=== PATIENT | female | born 1980 | race Hispanic/Latino ===

== ENCOUNTER 2018-05-23 09:56 | Emergency (ER) | payer OTHER ==
[2018-05-23 10:03] VITALS: BMI 29.6
--- NOTE | 2018-05-23 10:42 | ED PDOC ---
NIHSS Stroke Scale - Date/Time Evaluation Performed Date Performed: 05/23/18 Time Performed: 10:30 When Was NIHSS Performed: Code Stroke - How Severe is the Stroke Level of Consciousness: 0=Alert LOC to Questions: 0=Both comments correct LOC to commands: 0=Obeys both correctly Best Gaze: 0=Normal Visual: 0=No visual loss Facial: 0=Normal Motor Arm - Left: 0=No drift Motor Arm - Right: 0=No drift Motor Leg - Left: 0=No drift Motor Leg - Right: 0=No drift Limb Ataxia: 0=Absent Sensory: 1=Mild to moderate loss Best Language: 0=No aphasia Dysarthia: 0=Normal articulation Extinction & Inattention (Neglect): 0=Normal, no object Score: 1 Past Medical History Vital Signs: Last Vital Signs Temp 98.6 F 05/23/18 10:03 Pulse 77 05/23/18 10:31 Resp 16 05/23/18 10:31 BP 120/67 05/23/18 10:31 Pulse Ox 99 05/23/18 10:31 - Home Medications Home Medications: Ambulatory Orders Medication Instructions Recorded No Known Home Med 05/23/18 - Allergies Allergies/Adverse Reactions: Allergies Allergy/AdvReac Type Severity Reaction Status Date / Time No Known Allergies Allergy Verified 05/23/18 10:11 - ECG O2 Sat by Pulse Oximetry: 99 Disposition - Disposition
--- NOTE | 2018-05-23 10:44 | ED PDOC ---
HPI:STROKE - Time Time: 10:33 - Historian Historian: Patient - Chief Complaint Chief Complaint: Weakness (LEFT ARM), Numbness (LEFT FACE), Arm weakness (left) - Onset Date: 05/23/18 Time: 09:15 Onset: This morning (x1.5 hours ago) - Timing Timing: Persistent - Context Context: Walking, Exercising - Location Location: None Locate right:: Face Locate left: Upper extremity - Radiation Radiation: None - Associated Symptoms Associated symptoms:: Nausea, Vomiting, other (Vertigo and Arm Weakness) - Notes: Notes:: 37 y/o female with no significant PMHx presents to the ED for evaluation of dizziness, onset earlier this morning. Patient states she was walking her dog earlier this morning when she began to feel dizzy. Patient reports when she was working out, she began to feel dizzy again and laid down on the ground because she felt like she was going to "pass out". At approximately 9:15 this morning, patient reports of numbness to the left face and weakness to the left arm. Patient additionally reports of similar symptoms in the past but states she was told it was due to low blood pressure. Patient states dizziness is associated with nausea and 2 episodes of vomiting. Denies headache, fever, head trauma, abdominal pain, facial droop and slurred speech. PMD: Non [facility] Provider NIHSS Stroke Scale - Date/Time Evaluation Performed Date Performed: 05/23/18 Time Performed: 10:30 - How Severe is the Stroke Level of Consciousness: 0=Alert LOC to Questions: 0=Both comments correct LOC to commands: 0=Obeys both correctly Best Gaze: 0=Normal Visual: 0=No visual loss Facial: 0=Normal Motor Arm - Left: 0=No drift Motor Arm - Right: 0=No drift Motor Leg - Left: 0=No drift Motor Leg - Right: 0=No drift Limb Ataxia: 0=Absent Sensory: 1=Mild to moderate loss Best Language: 0=No aphasia Dysarthia: 0=Normal articulation Extinction & Inattention (Neglect): 0=Normal, no object Score: 1 rTPA Inclusion/Exclusion - Refusal of Treatment Patient Refused Treatment: No - Inclusion Criteria for Altepase Patient is 18 years or Older: Yes The Clinical Diagnosis of Ischemic Stroke That is Causing a Potentially Disabling Neurological Deficit: No Time of Onset is Well Established to be Less Than 270 Minute Before Treatment Would Begin: Yes Risk/Benefit Discussed With Patient/Family Member Present: No - Warning to TPA With Conditions Following Conditions Weighed Against Anticipated Benefit: Yes Condition: Rapid Improvement Past Medical History Reviewed: Historical Data, Nursing Documentation, Vital Signs Vital Signs: Last Vital Signs Temp 98.6 F 05/23/18 10:03 Pulse 77 05/23/18 10:31 Resp 16 05/23/18 10:31 BP 120/67 05/23/18 10:31 Pulse Ox 99 05/23/18 10:42 - Medical History PMH: No Chronic Diseases - Surgical History Surgical History: No Surg Hx - Family History Family History: States: Unknown Family Hx - Social History Current smoker - smoking cessation education provided: No Alcohol: Social Drugs: Denies - Home Medications Home Medications: Ambulatory Orders Medication Instructions Recorded Meclizine [Meclizine*] 25 mg PO Q6 PRN #20 tab 05/23/18 - Allergies Allergies/Adverse Reactions: Allergies Allergy/AdvReac Type Severity Reaction Status Date / Time No Known Allergies Allergy Verified 05/23/18 10:11 Review of Systems ROS Statement: Except As Marked, All Systems Reviewed And Found Negative Constitutional: Negative for: Fever Gastrointestinal: Negative for: Abdominal Pain Neurological: Positive for: Weakness (left arm), Numbness (left sided facial ). Negative for: Change in Speech, Headache Physical Exam - Reviewed Nursing Documentation Reviewed: Yes Vital Signs Reviewed: Yes - Physical Exam Appears: Positive for: No Acute Distress Head Exam: Positive for: ATRAUMATIC, NORMAL INSPECTION, NORMOCEPHALIC Skin: Positive for: Normal Color, Warm, Dry Eye Exam: Positive for: EOMI, Normal appearance, PERRL Neck: Positive for: Normal, Painless ROM Cardiovascular/Chest: Positive for: Regular Rate, Rhythm. Negative for: Murmur Respiratory: Positive for: Normal Breath Sounds. Negative for: Respiratory Distress Gastrointestinal/Abdominal: Positive for: Normal Exam, Soft. Negative for: Tenderness Back: Positive for: Normal Inspection. Negative for: L CVA Tenderness, R CVA Tenderness, Vertebral Tenderness Extremity: Positive for: Normal ROM. Negative for: Pedal Edema, Deformity Neurologic/Psych: Positive for: Alert, chemical unit operator II-XII (intact), Oriented (x3), Motor /Sensory Deficits (Decreased sensations to the left side of the face. ), Cerebellar Tests (normal). Negative for: Facial Droop, Other (Pronator distress ) - Laboratory Results Result Diagrams: 05/23/18 10:50 05/23/18 10:50 - ECG O2 Sat by Pulse Oximetry: 99 (RA) Pulse Ox Interpretation: Normal - Core Measure Core Measure Indicators: Code Stroke - Critical Care Total Time (In Min): 45 Medical Decision Making Medical Decision Making: Time: 1026 Plan: -- EKG Time: 1033 Impression: Possible Stroke Plan: -- Code Stroke Call placed. Time: 1037 Plan: -- CT Head w/o Contrast -- Stroke Team Consult -- CXR Portable -- Zofran Inj 4 mg IV -- [employer] Application Developer -- IV Insertoion -- Call Stroke Team Consult -- ED OBTAIN LABS STAT -- Glucose, Blood, POC -- Nursing Swallow Screening -- Vital Signs Q15MIN Time: 1040 -- Case discussed with neurologist, Dr. Soriano who recommended CTA Head/Neck to rule out dissection Time: 1043 Plan: -- CTA Head/Neck Code Stroke Protocol Time: 1047 Plan: -- Type and Screen -- CMP -- Hemoglobin A1C -- Lipid Panel -- Troponin I -- CBC with differentials -- PTT -- Prothrombin Time -- Sodium Chloride IV 100 mls/hr -- HCG, Qualitative Urine Time: 1054 -- Answered call from Radiologist who states CT Head is normal. Time: 1145 CXR RESULTS FINDINGS: LUNGS: Single frontal portable view of the chest was performed. Hypoventilatory changes are noted. No focal infiltrate, CHF, and/or effusion is noted. PLEURA: No significant pleural effusion identified, no pneumothorax apparent. CARDIOVASCULAR: Normal. OSSEOUS STRUCTURES: No significant abnormalities. VISUALIZED UPPER ABDOMEN: Normal. OTHER FINDINGS: None. IMPRESSION: No active disease. Time: 1249 -- Spoke to [facility] Radiologist who states CTA results are negative. CTA RESULTS FINDINGS: VASCULATURE: Right common carotid artery: Unremarkable. No significant stenosis. No dissection or occlusion. Right internal carotid artery: Unremarkable. Extracranial segment is patent with no significant stenosis. No dissection or occlusion. Right external carotid artery: Unremarkable. No occlusion. Right vertebral artery: Unremarkable. No significant stenosis. No dissection or occlusion. Left common carotid artery: Unremarkable. No significant stenosis. No dissection or occlusion. Left internal carotid artery: Unremarkable. Extracranial segment is patent with no significant stenosis. No dissection or occlusion. Left external carotid artery: Unremarkable. No occlusion. Left vertebral artery: Unremarkable. No significant stenosis. No dissection or occlusion. NECK: Bones/joints: No acute fracture. No dislocation. Soft tissues: Bilateral cervical chain lymph nodes. Submental and submandibular lymph nodes. CAROTID STENOSIS REFERENCE USING NASCET CRITERIA: % ICA stenosis = (1 - narrowest ICA diameter/diameter of distal cervical ICA) x 100. Mild - <50% stenosis. Moderate - 50-69% stenosis. Severe - 70-94% stenosis. Near occlusion - 95-99% stenosis. Occluded - 100% stenosis. IMPRESSION: Normal neck CTA. Thank you for allowing us to participate in the care of your patient. Dictated and Authenticated by: Luis Farrell MD 05/23/2018 12:45 PM Eastern Time ([place] & [place]) Time: 1250 -- On re-evaluation, patient reports symptoms have resolved. -- Informed Dr. Soriano, neurologist, on CTA results. Dr. Soriano states if symptoms have resolved to give patient Meclizine PRN and referral to follow up with him in his office within the next two weeks. -- Meclizine 50 mg PO given. Scribe Attestation: Documented by Emile Espinal acting as a scribe for Solange Vilchis MD. Provider Scribe Attestation: All medical record entries made by the Scribe were at my direction and personally dictated by me. I have reviewed the chart and agree that the record accurately reflects my personal performance of the history, physical exam, medical decision making, and the department course for this patient. I have also personally directed, reviewed, and agree with the discharge instructions and disposition. Disposition - Clinical Impression Clinical Impression: Vertigo, Paresthesia - Disposition Referrals: Wilbert Soriano MD [Medical Doctor] - Disposition: Routine/Home Disposition Time: 13:30 Condition: IMPROVED Additional Instructions: FOLLOW-UP WITH DR. SORIANO WITHIN 2 WEEKS FOR REEVALUATION. Prescriptions: Meclizine [Meclizine*] 25 mg PO Q6 PRN #20 tab PRN Reason: Dizziness Instructions: Vertigo (a Type of Dizziness), Paresthesias (DC) Forms: [employer] (Greenlandic)
[2018-05-23] MEDS ORDERED: Sodium Chloride 0.9% 1,000 ML IV SCH (10:45)
[2018-05-23] MEDS ORDERED: Iodixanol 320 MG/ML 100 ML BOTTLE IV ONE (10:56)
[2018-05-23] MEDS ORDERED: Sodium Chloride 0.9% 100 ML ONE (10:57)
--- NOTE | 2018-05-23 10:57 | CT ---
Date of service: 05/23/2018 PROCEDURE: CT HEAD WITHOUT CONTRAST. HISTORY: L facial numbness, LUE weakness COMPARISON: None available. TECHNIQUE: Axial computed tomography images were obtained through the head/brain without intravenous contrast. Radiation dose: Total exam DLP = 768 mGy-cm. This CT exam was performed using one or more of the following dose reduction techniques: Automated exposure control, adjustment of the mA and/or kV according to patient size, and/or use of iterative reconstruction technique. FINDINGS: HEMORRHAGE: No intracranial hemorrhage. BRAIN: No mass effect or edema. No atrophy or chronic microvascular ischemic changes. VENTRICLES: Unremarkable. No hydrocephalus. CALVARIUM: Unremarkable. PARANASAL SINUSES: Unremarkable as visualized. No significant inflammatory changes. MASTOID AIR CELLS: Unremarkable as visualized. No inflammatory changes. OTHER FINDINGS: None. IMPRESSION: Unremarkable CT scan of the brain without contrast. No evidence of intracranial hemorrhage or recent infarct.
[2018-05-23 11:03] LABS: INR 1.1; PROTHROMBIN TIME 11.7 Seconds (9.8-13.1)
[2018-05-23 11:06] LABS: PARTIAL THROMBOPLASTIN TIME 25.2 Seconds (25.6-37.1)
[2018-05-23 11:10] LABS: ALB/GLOB RATIO 1.3 (1.0-2.1); ALBUMIN 4.3 g/dL (3.5-5.0); ALT/SGPT 21 U/L (9-52); AST/SGOT 23 U/L (14-36); BLOOD UREA NITROGEN 20 mg/dl (7-17); CALCIUM 9.5 mg/dL (8.4-10.2); GFR NON-AFRICAN AMERICAN > 60; HDL CHOLESTEROL 55 MG/DL (30-70)
[2018-05-23 11:19] LABS: BASO # 0.1 K/uL (0.0-0.2); BASO % 1.1 % (0.0-2.0); EOS # 0.2 K/uL (0.0-0.7); EOS % 1.5 % (0.0-4.0); LYMPH # 4.1 K/uL (1.0-4.3); LYMPH % 31.4 % (20.0-40.0); MEAN CELL VOLUME 92.2 fl (81.0-99.0); MEAN CORPUSCULAR HEMOGLOBIN 30.3 pg (27.0-31.0); MEAN CORPUSCULAR HGB CONC 32.9 g/dL (33.0-37.0); MEAN PLATELET VOLUME 8.1 fl (7.2-11.7); MONO # 0.9 K/uL (0.0-0.8); MONO % 6.8 % (0.0-10.0); NEUT # 7.6 K/uL (1.8-7.0); NEUT % 59.2 % (50.0-75.0); NRBC % 0.4 % (0.0-0.0); RBC 4.6 Mil/uL (3.80-5.20); RED CELL DISTRIBUTION WIDTH 13.1 % (11.5-14.5); WHITE BLOOD COUNT 12.9 K/uL (4.8-10.8)
[2018-05-23 11:20] LABS: LDL CHOLESTEROL 98 mg/dL (0-129)
--- NOTE | 2018-05-23 11:47 | RAD ---
Date of service: 05/23/2018 HISTORY: Code Stroke COMPARISON: No prior. FINDINGS: LUNGS: Single frontal portable view of the chest was performed. Hypoventilatory changes are noted. No focal infiltrate, CHF, and/or effusion is noted. PLEURA: No significant pleural effusion identified, no pneumothorax apparent. CARDIOVASCULAR: Normal. OSSEOUS STRUCTURES: No significant abnormalities. VISUALIZED UPPER ABDOMEN: Normal. OTHER FINDINGS: None. IMPRESSION: No active disease.
--- NOTE | 2018-05-23 14:51 | CT ---
Date of service: 05/23/2018 PROCEDURE: CT Angiography of the head and neck with contrast HISTORY: L facial numbness, LUE weakness COMPARISON: Noncontrast CT scan same day TECHNIQUE: Contiguous axial images of the head and neck were obtained from the level of the top of the skull to the superior mediastinum in the arteriographic phase of enhancement. Coronal and sagittal reformats or also generated. 3D MIP images were also performed. IV contrast dose: 100 milliliters Radiation Dose - DLP: 371 mGy-cm This CT exam was performed using one or more of the following dose reduction techniques: Automated exposure control, adjustment of the mA and/or kV according to patient size, and/or use of iterative reconstruction technique. FINDINGS: RIGHT CAROTID ARTERIES: Common Carotid Artery: Normal. Carotid Bifurcation: Normal. Internal Carotid Artery:Normal. External Carotid Artery (proximal branches): Normal. LEFT CAROTID ARTERIES: Common Carotid Artery: Normal. Carotid Bifurcation: Normal. Internal Carotid Artery:Normal. External Carotid Artery (proximal branches): Normal. VERTEBRAL ARTERIES: Right Vertebral Artery: Normal. Left Vertebral Artery: Normal. There is less than 5 percent luminal narrowing by NASCET criteria. OTHER FINDINGS: CT angiography of the brain reveals no evidence of stenosis of the intracranial vertebral artery Center basilar artery. Intracranial internal carotid arteries, carotid bifurcation, and middle cerebral arteries are widely patent. Anterior cerebral arteries are also patent. No abnormal extrinsic compression upon the [place] vessels is seen. No aneurysm is seen. No appreciable vascular anomaly is noted. No abnormal enhancement is seen on the post-contrast images in the region of the brain. Retro-orbital regions are unremarkable. Visualized skull and sinuses are unremarkable. IMPRESSION: Unremarkable CTA of the head and neck with contrast. No appreciable stenosis or thrombus in the brain or neck vessel region. This agrees with preliminary report.
[2018-05-23 15:10] VITALS: BP 128/77; PULSE 63; RESP 18; TEMP 98
--- NOTE | 2018-05-24 08:07 | CARD ---
APPROVED REPORT Date of service: 05/23/2018 <Conclusion> Normal sinus rhythm Low voltage QRS Borderline ECG
[2018-05-24 11:34] VITALS: O2SAT 99
== END 2018-05-23 14:45 | disposition home or self-care (01) ==
LOC: H.ER 09:56
DX: R42 Dizziness and giddiness (principal); R20.0 Anesthesia of skin
CPT/HCPCS: 70450; 70496; 70498; 71045; 80053; 80061; 81025; 82948; 83036; 84484; 85025; 85610; 85730; 86850; 86900; 93005; 96374; 99285; J2405; J7030; Q9967